=== PATIENT | female | born 1990 | race African-American/Black ===

== ENCOUNTER 2025-08-22 05:31 | Emergency (ER) | payer OTHER ==
[~2025-08-22] VITALS: Ht 167.6 cm; Wt 69.0 kg
[2025-08-22 05:34] VITALS: O2SAT 97
[2025-08-22] MEDS ORDERED: CHLORDIAZEPOXIDE 25MG CAPSULE PO PRN ×3 (05:45)
[2025-08-22] MEDS ORDERED: LORAZEPAM 1MG TABLET PO PRN ×3 (05:45)
[2025-08-22] MEDS: THIAMINE HCL 100 MG/1 ML 2ML VIAL IM SCH (05:45)
[2025-08-22] MEDS ORDERED: PHENOBARBITAL 30 MG TABLET PO PRN ×2 (05:45)
[2025-08-22] MEDS ORDERED: PHENOBARBITAL 60MG TABLET PO PRN (05:45)
[2025-08-22] MEDS: FOLIC ACID 1MG TABLET PO SCH (06:33)
[2025-08-22] MEDS: LORAZEPAM 2MG/ML UD SYRINGE IM SCH (06:44)
[2025-08-22 07:32] LABS: BASOPHILS % 0.3 % (0.0-2.0); EOSINOPHILS % 3.1 % (0.0-5.0); HEMATOCRIT. 43.1 % (36.0-48.0); HEMOGLOBIN. 14.2 g/dL (12.0-16.0); LYMPHOCYTES % 46.4 % (20.0-50.0); MEAN PLATELET VOLUME 7.6 fl (7.4-10.4); MONOCYTES % 6.2 % (2.0-8.0); NEUTROPHILS % 44.0 % (40.0-76.0); PLATELET 250 x1000/uL (130-400); RED BLOOD CELL COUNT 4.46 mill/uL (4.2-5.4); RED CELL DISTRIBUTION WIDTH 13.1 % (11.6-14.6)
[2025-08-22 07:39] LABS: INR 1.0
[2025-08-22] MEDS: MULTIVITAMINS,THER W-MINERALS TABLET PO SCH (07:42)
[2025-08-22 07:45] LABS: CREATININE 0.8 mg/dL (0.6-1.0); UREA NITROGEN BLOOD < 5 mg/dL (9-23)
[2025-08-22 07:47] LABS: ASPARTATE AMINOTRANSFERASE 25 IU/L (<34); BILIRUBIN DIRECT 0.1 mg/dL (<=3.0)
[2025-08-22 07:48] LABS: BILIRUBIN TOTAL 0.4 mg/dL (0.1-1.0); PROTEIN TOTAL 7.8 g/dL (6.0-8.3)
[2025-08-22 08:20] VITALS: BP 115/68; PULSE 74; RESP 18; TEMP 36.4; O2SAT 98
[2025-08-24] MEDS ORDERED: THIAMINE HCL 100MG TABLET PO SCH (09:00)
== END 2025-08-22 08:50 | disposition home or self-care (01) ==
LOC: ER 05:31 → CMPBEDREQ 12:22
DX: F10.129 Alcohol abuse with intoxication, unspecified (principal); Z88.1 Allergy status to other antibiotic agents; Z79.899 Other long term (current) drug therapy; Z98.890 Other specified postprocedural states; Y90.8 Blood alcohol level of 240 mg/100 ml or more
CPT/HCPCS: 80076; 80048; 80320; 82140; 83690; 83735; 85025; 85610; 36415; 96372; 99283; J2060; J3411; Z7610; G0480